=== PATIENT | female | born 1980 | race Hispanic/Latino ===

== ENCOUNTER 2018-04-09 13:50 | Emergency (ER) | payer BC, OTHER | END 2018-04-09 14:38 | disposition home or self-care (01) | LOC: EDH 13:50 | DX: S92.515A Nondisplaced fracture of proximal phalanx of left lesser toe(s), initial encounter for closed fracture (principal); Z88.0 Allergy status to penicillin; Z98.890 Other specified postprocedural states; Z72.0 Tobacco use; W22.8XXA Striking against or struck by other objects, initial encounter; Y93.89 Activity, other specified; Y92.098 Other place in other non-institutional residence as the place of occurrence of the external cause; Y99.8 Other external cause status | CPT/HCPCS: 73630 ==

== ENCOUNTER 2024-03-29 13:59 | Emergency (ER) | payer SELFPAY ==
[~2024-03-29] VITALS: Ht 157.5 cm; Wt 65.8 kg
[2024-03-29 14:00] VITALS: TEMP 99.3
[2024-03-29 14:21] VITALS: BP 125/84; PULSE 70; RESP 16; O2SAT 99
[2024-03-29] MEDS ORDERED: IVER3 PO (14:47)
== END 2024-03-29 16:57 | disposition home or self-care (01) ==
LOC: EDH 13:59
DX: B86 Scabies (principal); Z88.0 Allergy status to penicillin; Z98.890 Other specified postprocedural states